=== PATIENT | male | born 1980 | race African-American/Black ===

== ENCOUNTER 2017-06-27 15:47 | Emergency (ER) | payer BC ==
[~2017-06-27] VITALS: Ht 177.8 cm; Wt 72.6 kg
[2017-06-27] MEDS ORDERED: NAPROSYN500 MG PO (17:48)
== END 2017-06-27 18:45 | disposition home or self-care (01) ==
LOC: ER 15:47
DX: S39.012A Strain of muscle, fascia and tendon of lower back, initial encounter (principal); S16.1XXA Strain of muscle, fascia and tendon at neck level, initial encounter; V49.40XA Driver injured in collision with unspecified motor vehicles in traffic accident, initial encounter; Y93.89 Activity, other specified; Y92.89 Other specified places as the place of occurrence of the external cause; Y99.8 Other external cause status